=== PATIENT | female | born 1995 ===

== ENCOUNTER → 2021-10-21 09:01 | Outpatient (BNVA) | payer OTHER, SELFPAY | PROVIDERS: PCP Internal Medicine; Visit Provider Nurse Practitioner Family | DX: G43.109 Migraine with aura, not intractable, without status migrainosus (principal); M54.2 Cervicalgia; Z79.899 Other long term (current) drug therapy | CPT/HCPCS: 99212 ==

== ENCOUNTER → 2022-04-18 10:02 | Outpatient (BNVA) | payer OTHER, SELFPAY | PROVIDERS: PCP Internal Medicine; Visit Provider Nurse Practitioner Family | DX: G43.109 Migraine with aura, not intractable, without status migrainosus (principal); M54.2 Cervicalgia; Z79.899 Other long term (current) drug therapy | CPT/HCPCS: 99212 ==

== ENCOUNTER 2023-06-28 10:28 | Outpatient (AMB) | payer OTHER, SELFPAY ==
[2023-06-28 10:31] VITALS: BP 108/70; PULSE 92; O2SAT 97; BMI 29.9
--- NOTE | 2023-06-28 10:31 | A.OFFVIS_ITS ---
Intake Vital Signs 06/28/23 10:31 Height 5 ft 7 in Weight 191 lb BMI 29.9 BP 108/70 Blood Pressure Location Lt brachial Position Sitting Pulse 92 Pulse Source Pulse Oximeter Pulse Oximetry (%) 97 Oxygen Delivery Method Room Air Intake Visit Reasons: 1yr follow up - Confirmed Intake Note: Pt presents to the office today for a 1 year follow up for Cervicalgia of xeuyqoor-hfjiioo-mhvqw region. Pt states she is still having headaches which she believes is seasonal. Pt states she is also having nerve pain in her shoulders as well. Allergies Dust mites Allergy (Mild, Uncoded 06/28/23 10:33) Sneezing Medication List - Last Reconciled 06/28/23 by Sari Pena CNP albuterol sulfate 90 mcg/actuation 2 inhalations inhalation Q4-6H PRN budesonide 32 mcg/actuation 1 spray intranasal DAILY cetirizine 10 mg PO DAILY PRN epinephrine 0.3 mg IM Q4H PRN famotidine 20 mg PO DAILY fluticasone propionate 110 mcg/actuation (Flovent HFA) 1 puff inhalation BID magnesium oxide 400 mg PO BEDTIME triamcinolone acetonide 0.025% 1 appl topical DAILY HPI HPI Comments History of Present Illness Details 28 y/o female patient presents for follo w up of migraine. Pt reports that she has not had migraines for a while, but has been having daily mild headaches for a month. She gave a a month ago, pt is not sure if it caused headache or if it was cold weather, or allergies causing the headaches. She has not had her allergy injection for a while during the period. Pt also reports electric sharp pain on right shoulder. She always had the pain but it is more bothersome lately, and it radiates to her neck and back of her head. Denies shooting pain on her arm or finger. Denies numbness of upper extremities. She tried massage gun but she had more pain. [facility] Medical History Santoyo's palsy Social History (Updated 06/28/23 @ 10:34 by Francy Ma MA) Alcohol intake: never Patient Tobacco Use Status: Never used Tobacco Review of Systems Const All systems reviewed & are unremarkable except as noted in HPI and below Physical Exam Vital Signs: Last Vital Signs Pulse 92 06/28/23 10:31 BP 108/70 06/28/23 10:31 Pulse Ox 97 06/28/23 10:31 Oxygen Delivery Method Room Air 06/28/23 10:31 BMI result Body Mass Index 29.9 Const General: healthy appearing and comfortable Nutritional Appearance: average body habitus Orientation/consciousness: patient oriented x3 Limitations: no limitations HEENT Head: Yes normal to inspection Neuro General: patient oriented x3 Cranial nerves: Yes CN's II-XII intact bilaterally and Yes Other cranial nerve findings present (Left eye lid and lip midly dropped) Cognition (Neuro): normal cognition Gait exam (Neuro): Normal gait present Motor exam (neuro): 5/5 motor strength present throughout Assessment & Plan Assessment & Plan (1) Cervicalgia of jsjtrixl-egdzvhx-rjaan region: Code(s): M54.2 - Cervicalgia (2) Migraine with aura, not intractable, without status migrainosus: Code(s): G43.109 - Migraine with aura, not intractable, without status migrainosus Plan Continue to take Magnesium 400mg q HS. Refer patient to physical therapy for shoulder muscle tightness and pain. Advised patient to have gentle streching exercise for neck and shoulder. Orders: Orders PT Evaluation and Treatment 12 Weeks G43.109 - Migraine with aura, not intractable, without status migrainosus, M54.2 - Cervicalgia Medications: New magnesium oxide 400 mg PO BEDTIME 30 tabs 6RF Coding Level of Care Code Est Pt Level 3 (95817) Diagnoses Cervicalgia of rprbhhhh-juqxtha-qxdhm region M54.2 Migraine with aura, not intractable, without status migrainosus G43.109
== END 2023-06-28 10:53 | disposition home or self-care (01) ==
PROVIDERS: PCP Internal Medicine; Visit Provider Nurse Practitioner Family
DX: M54.2 Cervicalgia (principal); G43.109 Migraine with aura, not intractable, without status migrainosus
CPT/HCPCS: 99213

== ENCOUNTER → 2023-06-28 10:28 | Outpatient (BNVA) | payer OTHER, SELFPAY | PROVIDERS: PCP Internal Medicine; Visit Provider Nurse Practitioner Family | DX: M54.2 Cervicalgia (principal); G43.709 Chronic migraine without aura, not intractable, without status migrainosus | CPT/HCPCS: 99212 ==

== ENCOUNTER 2024-01-11 07:59 | Outpatient (AMB) | payer OTHER, SELFPAY ==
--- NOTE | 2024-01-11 08:02 | A.OFFVIS_ITS ---
Vital Signs 01/11/24 08:08 Height 5 ft 7 in Weight 179 lb 4 oz BMI 28.1 BP 112/60 Blood Pressure Location Lt brachial Position Sitting Pulse 73 Pulse Source Pulse Oximeter Pulse Oximetry (%) 98 Oxygen Delivery Method Room Air Intake Visit Reasons: follow up Sleep - Confirmed Intake Note: Patient presents for f/u. Allergies Dust mites Allergy (Mild, Uncoded 06/28/23 10:33) Sneezing HPI Comments Details: 28 y/o female patient presents for follow up of migraine and cervicalgia. Pt reports that she has not had migraines for a while, but can have mild migraine when she is tired. She could not schedule physical therapy for neck pain, but her neck pain has improved and does not want to do it at this time. Pt's seasonal allergy usually triggers headache, plans to have allergy shot after finishing . She had a cortisone shot on her wrist, and the wrist pain has improved. Denies shooting pain on her arm or finger. Denies numbness of upper extremities. [facility] Medical History Santoyo's palsy Social History Alcohol intake: never Patient Tobacco Use Status: Never used Tobacco Review of Systems Const All systems reviewed & are unremarkable except as noted in HPI and below Physical Exam Vital Signs: Last Vital Signs Pulse 73 01/11/24 08:08 BP 112/60 01/11/24 08:08 Pulse Ox 98 01/11/24 08:08 Oxygen Delivery Method Room Air 01/11/24 08:08 BMI result Body Mass Index 28.1 Const General: healthy appearing and comfortable Nutritional Appearance: average body habitus Orientation/consciousness: patient oriented x3 Limitations: no limitations HEENT Head: Yes normal to inspection Neuro General: patient oriented x3 Cranial nerves: Yes CN's II-XII intact bilaterally and Yes Other cranial nerve findings present (Left eye lid and lip midly dropped) Cognition (Neuro): normal cognition Gait exam (Neuro): Normal gait present Motor exam (neuro): 5/5 motor strength present throughout Assessment & Plan Assessment & Plan (1) Cervicalgia of mnfskyfz-ojgvzyk-eyhqs region: Code(s): M54.2 - Cervicalgia Category: Medical (2) Migraine with aura, not intractable, without status migrainosus: Code(s): G43.109 - Migraine with aura, not intractable, without status migrainosus Category: Medical Plan She may continue to take Magnesium 400mg q HS. Advised patient to have gentle stretching exercise for neck and shoulder. Coding Level of Care Code Est Pt Level 3 (04094) Diagnoses Cervicalgia of nczxnqfj-rcecqjj-werqw region M54.2 Migraine with aura, not intractable, without status migrainosus G43.109
[2024-01-11 08:08] VITALS: BP 112/60; PULSE 73; O2SAT 98; BMI 28.1
== END 2024-01-11 08:29 | disposition home or self-care (01) ==
PROVIDERS: PCP Internal Medicine; Visit Provider Nurse Practitioner Family
DX: M54.2 Cervicalgia (principal); G43.109 Migraine with aura, not intractable, without status migrainosus
CPT/HCPCS: 99213

== ENCOUNTER → 2024-01-11 07:59 | Outpatient (BNVA) | payer OTHER, SELFPAY | PROVIDERS: PCP Internal Medicine; Visit Provider Nurse Practitioner Family | DX: G43.109 Migraine with aura, not intractable, without status migrainosus (principal); M54.2 Cervicalgia; Z79.899 Other long term (current) drug therapy | CPT/HCPCS: 99212 ==